=== PATIENT | female | born 1965 | race Caucasian/White ===

== ENCOUNTER 2017-09-07 12:13 | Emergency (ER) | payer MEDICAID ==
[2017-09-07 12:23] VITALS: BP 107/75; PULSE 80; RESP 16; TEMP 97.9; O2SAT 95
--- NOTE | 2017-09-07 12:43 | EDPHY ---
H & P Time Seen by Provider: 09/07/17 12:19 HPI/ROS: CHIEF COMPLAINT: Flu-like symptoms x2 days HISTORY OF PRESENT ILLNESS: 52-year-old immunocompetent female with up-to-date influenza vaccination complaining of 2 days of flu-like symptoms. She has seen the ER with her daughter with similar symptoms for similar amount of time, complaining of nonproductive cough, sore throat, fever, chills. No urinary complaints. No abdominal pain. No nausea or vomiting. No headache. No nuchal rigidity. No chest pain. No dyspnea. PRIMARY CARE PROVIDER: Dr. Amisha Encinas REVIEW OF SYSTEMS: A ten point review of systems was performed and is negative with the exception of the items mentioned in the HPI PAST MEDICAL & SURGICAL HISTORY: No influenza vaccination SOCIAL HISTORY: Nonsmoker PHYSICAL EXAM (Prior to examination, patient consented to physical exam, hands were washed and my usual and customary physical exam procedures followed) 1) GENERAL: Well-developed, well-nourished, alert and oriented. Appears to be in no acute distress. 2) HEAD: Normocephalic, atraumatic 3) HEENT: Pupils equal, round, reactive to light bilaterally. Sclera anicteric. Nasopharynx, oropharynx, clear, no lesions. No tonsillar enlargement or exudate. No trismus no drooling Ears bilaterally with normal tympanic membranes. 4) NECK: Full range of motion, no meningeal signs. 5) LUNGS: Clear auscultation bilaterally, no wheezes, no rhonchi, no retractions. 6) HEART: Regular rate and rhythm, no murmur, no heave, no gallop. 7) ABDOMEN: No guarding, no rebound, no focal tenderness, negative McBurney's, negative Gage's, negative Rovsing's, negative peritoneal sign, 8) MUSCULOSKELETAL: Moving all extremities, no focal areas of tenderness, no obvious trauma. No peripheral edema or discoloration. 9) BACK: No CVA tenderness, no midline vertebral tenderness, no fluctuance, no step-off, no obvious trauma, no visual or palpable abnormality. 10) SKIN: No rash, no petechiae. 11) Psychiatric: Patient is oriented X 3, there is no agitation. DIFFERENTIAL DIAGNOSIS: In no particular order including but not limited to influenza, bronchitis, pneumonia Smoking Status: Former smoker Constitutional: Initial Vital Signs Temperature (C) 36.6 C 09/07/17 12:20 Heart Rate 80 09/07/17 12:20 Respiratory Rate 16 09/07/17 12:20 Blood Pressure 107/75 09/07/17 12:20 O2 Sat (%) 95 09/07/17 12:20 O2 Delivery Mode Room Air Allergies/Adverse Reactions: No Known Allergies Allergy (Unverified 07/22/16 20:23) Home Medications: Medication Instructions Recorded NK [No Known Home Meds] 09/07/17 MDM/Departure - MDM ED Course/Re-evaluation: I think the patient's symptoms are more than likely secondary to viral etiology , possible influenza. She currently appears well, maintaining normal saturations. I had a lengthy discussion with patient about indications risks benefits of Tamiflu and influenza testing. After an extensive conversation she has decided to decline testing and Tamiflu. We discussed supportive therapy which I think is appropriate for this patient. She is not hypoxemic. Recommend avoiding public spaces, fluid hydration, usual customary discharge precautions instructions provided. Care of patient under supervision of primary supervising physician Dr Martinez . - Depart Disposition: Home, Routine, Self-Care Clinical Impression: Influenza-like illness Condition: Good Instructions: Influenza (ED) Additional Instructions: Return to the emergency department immediately for change in breathing habits, change in voice, change in swallowing habits, change in mental status, or any other symptoms that concern you. Adult Pain & Fever Control: We recommend Acetaminophen (Tylenol) and Ibuprofen (Motrin,Advil) for pain and fever control. When fever is high or pain severe, both drugs can be used at the same time, but at different intervals. Please note the time differences. Your dose is: Acetaminophen 650mg every 4 to 6 hours Ibuprofen 600mg every 6 hours with food OR Note: do not take Acetaminophen with Hydrocodone (Vicodin, Lortab) or Oycodone (Percocet). These medications also contain Acetaminophen. No more than 3000mg of Acetaminophen should be taken in 24 hours (for an adult). Referrals: Amisha Encinas MD [Primary Care Provider] - 2-3 days, call for appt.
== END 2017-09-07 13:00 | disposition home or self-care (01) ==
DX: R05 Cough (principal); Z87.891 Personal history of nicotine dependence

== ENCOUNTER → 2018-09-26 | Outpatient (CLI) | payer MEDICAID | LOC: GIMAGING 15:09 → EDSTATUS 15:53 | PROVIDERS: ATTEND Family Medicine | DX: M79.645 Pain in left finger(s) (principal) | CPT/HCPCS: 73140-PO ==